=== PATIENT | male | born 2000 | race African-American/Black ===

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

== ENCOUNTER 2020-07-27 08:00 | Outpatient (CLI) | payer OTHER ==
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
== END 2020-07-27 23:59 | disposition home or self-care (01) ==
LOC: DI.N 08:00
PROVIDERS: ATTEND Nurse Practitioner
DX: S69.91XA Unspecified injury of right wrist, hand and finger(s), initial encounter (principal)